=== PATIENT | female | born 1960 | race African-American/Black ===

== ENCOUNTER 2020-11-19 08:42 | Outpatient (CLI) | payer BC, SELFPAY ==
--- NOTE | 2020-11-19 | ECHO_ITS ---
Patient Info Name: Munria Joshua Age: 60 years : 1960 Gender: Female Ht: 64 in Wt: 160 lbs BSA: 1.83 m2 HR: 94 bpm BP: 119 / 81 mmHg Heart Rhythm: Sinus Rhythm Exam Date: 11/19/2020 9:15 AM Exam Location: [facility] Patient Status: Outpatient Admit Date: 11/19/2020 Staff Ordering Physician: Suki, Brittany SCOTT Medical Representative: Frances Miguel RDCS Attending Provider: Suki, Brittany SCOTT Exam Type: CA echo doppler color flow Study Info Indications R06.09 - Other forms of dyspnea Complete two-dimensional, color flow and Doppler transthoracic echocardiogram is performed. Summary 1. Complete two-dimensional, color flow and Doppler transthoracic echocardiogram is performed. 2. Left ventricular chamber dimension is normal. 3. Left ventricular systolic function is normal, estimated at 55-60%. 4. The left ventricular diastolic function is grade I diastolic dysfunction. 5. E/e' 6 is not elevated. 6. There is mild mitral valve regurgitation. 7. There is mild tricuspid valve regurgitation. 8. No pulmonary hypertension, estimated pulmonary arterial systolic pressure is 27 mmHg. 9. There is trace pulmonic regurgitation. Left Ventricle E/e' 6 is not elevated. Left ventricular chamber dimension is normal. Left ventricular systolic function is normal, estimated at 55-60%. The left ventricular diastolic function is grade I diastolic dysfunction. Right Ventricle Right ventricular systolic function is normal and with normal TAPSE 2.0 cm. Right ventricular chamber dimension is normal. Left Atria Left atrial chamber dimension is normal. Right Atria Right atrial chamber dimension is normal. Aortic Valve The aortic valve is trileaflet. There is no aortic valve stenosis. There is no aortic valve regurgitation. Pulmonic Valve There is trace pulmonic regurgitation. Mitral Valve There is no mitral valve stenosis. There is mild mitral valve regurgitation. Tricuspid Valve There is mild tricuspid valve regurgitation. No pulmonary hypertension, estimated pulmonary arterial systolic pressure is 27 mmHg. Pericardium/Pleural There is no pericardial effusion. Inferior Vena Cava Normal inferior vena cava with >50% collapse upon inspiration consistent with normal right atrial pressure, 5 mmHg. Aorta The aortic root size at the sinus of Valsalva is normal. Left Ventricular Outflow Tract Name Value Normal LVOT 2D LVOT Diameter 2.0 cm LVOT Doppler LVOT Peak Gradient 3 mmHg LVOT Mean Gradient 1 mmHg LVOT VTI 19 cm LVOT VTI/AV VTI Ratio 0.7 LVOT Stroke Volume 61 ml LVOT CO 3.9 l/min LVOT CI 2.1 l/min/m2 Pulmonic Valve Name Value Normal RVOT Doppler
--- NOTE | 2020-11-19 11:48 | PCRCNOTE ---
I SPOKE WITH [facility]S OFFICE CONCERNING PT'S LOW FLOWS OF PFT. OFFICE STATED I COULD DISCHARGE PT SHE STATED SHE WAS BACK TO HER BASELINE.
--- NOTE | 2020-11-19 15:58 | P.PCNPFT_ITS ---
PFT Procedure Performed PFT Procedure Performed Spirometry with Pre/Post Bronchodilator Plethysmography (Lung Vol) Diffusing Cap (DLCO) Flow Vol Loop PFT Interpretation This is a pulmonary function test with pre and post-bronchodilator spirometry, plethysmography and diffusing capacity. The test was performed and results interpreted in accordance with the 2019 and 2005 ATS/ERS Task Force guidelines respectively using the Global Lung Function Initiative-2012 reference equations. Patient demonstrated good effort and cooperation. Reproducibility criteria were met. The quality of the pre bronchodilator spirometry maneuver was Grade A and post bronchodilator spirometry maneuver was Grade A. Of note the patient had difficulty with the testing due to shortness of breath Findings: Spirometry: there is decreased maximal expiratory airflow at lung about low lung volumes with a mildly concave expiratory flow tracing. The contour of the inspiratory flow tracing is normal. The pre bronchodilator FVC is 1.77 L, 55% predicted. The pre bronchodilator FEV1 is 1.21 L, 48% predicted. The FEV1: FVC ratio 68%. The post bronchodilator FVC is 1.07 L, representing a 39% decrease. The post bronchodilator FEV1 is 0.70 L, representing a 42% decrease. Plethysmography: The total lung capacity is 3.41 L, 67% predicted. The functional residual capacity is 1.89 L, 66% predicted. The residual volume is 1.64 L, 83% predicted. Diffusing capacity: The absolute diffusion capacity is 7.6, 35% predicted. The diffusing capacity corrected for alveolar volume is 3.35, 75% predicted. Impression: There is a combined obstructive and restrictive ventilatory abnormality. There are no guidelines to assign the severity of obstruction and restriction with a combined abnormality. In my opinion, given the mildly concave expiratory flow tracing and mildly decreased FEV1: FVC ratio and moderate restrictive abnormality I would state there is a mild obstructive abnormality and a moderate restrictive abnormality resulting in a severely decreased FEV1. There is no significant improvement after inhaling a single dos e of albuterol. The diffusing capacity is severely decreased but normalizes when corrected for alveolar volume. There are no prior studies for comparison
== END 2020-11-19 08:43 | disposition home or self-care (01) ==
PROVIDERS: PCP Family Medicine; Visit Provider Nurse Practitioner
DX: R06.02 Shortness of breath (principal)
CPT/HCPCS: 93306; 94060; 94726; 94729